=== PATIENT | male | born 1985 | race Caucasian/White ===

== ENCOUNTER → 2016-09-20 | Outpatient (CLI) | payer OTHER ==
[2016-01-16 14:02] VITALS: BP 138/75
--- NOTE | 2016-09-20 16:09 | KCIC ---
PROCEDURE Thoracic spine, three views Lumbar spine, five views HISTORY Upper lumbar pain in lower thoracic pain times approximately 1 year. No known injury. TECHNIQUE Lumbar: AP, lateral, coned lumbosacral lateral, and bilateral oblique views. Thoracic: AP, lateral, and swimmer's views. COMPARISON None. FINDINGS In the thoracic spine the vertebral body height and alignment are maintained. Disc spaces are maintained. The paravertebral stripes are smooth. Visualized lungs are clear. Moderate elevation right hemidiaphragm. Cervical spine alignment is maintained on the swimmer's view. The upper thoracic spine is adequately seen. The prevertebral soft tissues are normal. Five lumbar type vertebral bodies. Visualized pelvic bones unremarkable. The lumbar spine vertebral body height and alignment are maintained. No significant disc space narrowing. There is minimal degenerative endplate spurring. No pars defect is appreciated on the oblique views. Nonspecific bowel gas pattern. IMPRESSION No compression fracture or malalignment of the thoracic or lumbar spine. Electronically signed by: Sergey Mejias MD (Sep 20, 2016 16:08:13)
== END | disposition home or self-care (01) ==
LOC: KCIC 14:39
PROVIDERS: ATTEND Family Medicine
DX: M54.5 Low back pain (principal); M54.6 Pain in thoracic spine
CPT/HCPCS: 72072; 72110

== ENCOUNTER 2019-07-10 10:54 | Emergency (ER) | payer MEDICAID, OTHER ==
[2016-01-16 14:02] VITALS: BP 138/75
== END 2019-07-10 12:39 | disposition left against medical advice (07) ==
LOC: ER 10:54
DX: R51 Headache (principal); Z53.21 Procedure and treatment not carried out due to patient leaving prior to being seen by health care provider

== ENCOUNTER 2021-05-12 13:36 | Emergency (ER) | payer MEDICAID ==
[~2021-05-12] VITALS: Ht 177.8 cm; Wt 94.5 kg
[2021-05-12 14:11] VITALS: BP 19/75
== END 2021-05-12 15:15 | disposition left against medical advice (07) ==
LOC: ER 13:36
DX: R11.2 Nausea with vomiting, unspecified (principal); R19.7 Diarrhea, unspecified; Z53.21 Procedure and treatment not carried out due to patient leaving prior to being seen by health care provider